=== PATIENT | male | born 2000 | race Caucasian/White ===

== ENCOUNTER 2021-03-07 18:19 | Emergency (ER) | payer OTHER ==
[~2021-03-07] VITALS: Ht 177.8 cm; Wt 118.2 kg
[2021-03-07 22:51] VITALS: BP 134/87
[2021-03-08] MEDS ORDERED: PERTUSS(ACELL),DIPH,TET VAC/PF 0.5 ML SYRINGE IM. ONE (00:15)
== END 2021-03-08 00:10 | disposition home or self-care (01) ==
LOC: EMS 18:19
DX: S60.512A Abrasion of left hand, initial encounter (principal); J45.909 Unspecified asthma, uncomplicated; F12.90 Cannabis use, unspecified, uncomplicated; Z87.891 Personal history of nicotine dependence; W22.8XXA Striking against or struck by other objects, initial encounter; Y93.89 Activity, other specified; Y92.89 Other specified places as the place of occurrence of the external cause; Y99.8 Other external cause status
CPT/HCPCS: 90471; 90715; 99283

== ENCOUNTER 2021-04-10 12:58 | Emergency (ER) | payer OTHER ==
[~2021-04-10] VITALS: Ht 180.3 cm; Wt 109.1 kg
[2021-04-10 13:04] VITALS: BP 137/73
[2021-04-10] MEDS ORDERED: BACITRACIN 0.9 GM PACKET OINTMENT TP ONE (14:00)
[2021-04-10] MEDS ORDERED: IBUPROFEN 600 MG TABLET PO ONE (14:30)
== END 2021-04-10 15:59 | disposition home or self-care (01) ==
LOC: EMS 13:05
DX: S61.213A Laceration without foreign body of left middle finger without damage to nail, initial encounter (principal); J45.909 Unspecified asthma, uncomplicated; W45.8XXA Other foreign body or object entering through skin, initial encounter; Y93.89 Activity, other specified; Y92.89 Other specified places as the place of occurrence of the external cause; Y99.8 Other external cause status
CPT/HCPCS: 99283